=== PATIENT | female | born 1955 | race African-American/Black ===

== ENCOUNTER 2017-11-22 17:15 | Inpatient (IN) | payer MEDICARE, OTHER ==
[~2017-11-22] VITALS: Ht 160 cm; Wt 75.8 kg
[2017-11-22] MEDS ORDERED: ONDANSETRON HCL 4MG/2ML INJ IV STA (17:53)
[2017-11-22] MEDS ORDERED: SODIUM CHLORIDE 0.9% 1,000 ML IV ONE (17:53)
[2017-11-22] MEDS ORDERED: MORPHINE SULFATE 4 MG/ML CPJ (NOT FOR IM USE) IV STA (17:53)
[2017-11-22] MEDS ORDERED: ASPIRIN 81MG TABLET PO ONE (18:00)
[2017-11-22] MEDS ORDERED: FAMOTIDINE 20MG/2ML VIAL IV ONE (18:00)
[2017-11-22] MEDS ORDERED: MAGNESIUM/ALUMINUM HYDROXIDE/SIMETHICONE 30ML UDC PO ONE (18:00)
[2017-11-22 18:39] LABS: CHLORIDE 104 mEq/L (98-107)
[2017-11-22 18:42] LABS: D-DIMER 0.45 mg/L FEU (<0.50); INR 0.9; PARTIAL THROMBOPLASTIN TIME 29.6 sec (23.4-31.0); PROTHROMBIN TIME 9.4 sec (9.1-11.1)
[2017-11-22 18:44] LABS: BASOPHILS % 0.3 % (0.0-2.0); EOSINOPHILS % 2.5 % (0.0-5.0); HEMOGLOBIN. 12.7 g/dL (12.0-16.0); LYMPHOCYTES % 34.5 % (20.0-50.0); MEAN CORPUSCULAR HEMOGLOBIN 22.5 pg (28.0-32.0); MEAN CORPUSCULAR VOLUME 71.3 fL (81.0-99.0); MEAN PLATELET VOLUME 7.9 fl (7.4-10.4); MONOCYTES % 7.4 % (2.0-8.0); NEUTROPHILS % 55.3 % (40.0-76.0); PLATELET 298 x1000/uL (130-400); RED BLOOD CELL COUNT 5.61 mill/uL (4.2-5.4); RED CELL DISTRIBUTION WIDTH 16.9 % (11.6-14.6)
[2017-11-22 18:45] LABS: ETHANOL BLOOD < 10 mg/dL
[2017-11-22 20:53] LABS: *AMPHETAMINES SCREEN URINE NEGATIVE (NEGATIVE); *BARBITURATES SCREEN URINE NEGATIVE (NEGATIVE); *BENZODIAZEPINES SCREEN URINE NEGATIVE (NEGATIVE)
[2017-11-22 20:57] LABS: *COCAINE SCREEN URINE PRESUMTIVE POSITIVE (NEGATIVE); CANNABINOID URINE SCREEN NEGATIVE (NEGATIVE); METHADONE URINE SCREEN NEGATIVE (NEGATIVE); OPIATES URINE SCREEN PRESUMTIVE POSITIVE (NEGATIVE); PHENCYCLIDINE URINE SCREEN NEGATIVE (NEGATIVE)
[2017-11-22] MEDS ORDERED: ACETAMINOPHEN 325MG TABLET PO PRN (21:00)
[2017-11-22] MEDS ORDERED: DOCUSATE SODIUM 100MG CAPSULE PO PRN (21:00)
[2017-11-22] MEDS ORDERED: TRAMADOL 50MG TABLET PO PRN (21:00)
[2017-11-22] MEDS ORDERED: DIPHENHYDRAMINE 50MG/ML VIAL IV PRN (21:00)
[2017-11-22] MEDS ORDERED: MAGNESIUM/ALUMINUM HYDROXIDE/SIMETHICONE 30ML UDC PO PRN (21:00)
[2017-11-22] MEDS ORDERED: GUAIFENESIN 200MG/10ML SUGAR FREE UDC PO PRN (21:00)
[2017-11-22] MEDS ORDERED: LORAZEPAM 0.5MG TABLET PO PRN (21:00)
[2017-11-22] MEDS ORDERED: NA PHOS,M-B/NA PHOS,DI-BA ENEMA 118ML PR PRN (21:00)
[2017-11-22] MEDS ORDERED: ZOLPIDEM TARTRATE 5MG TABLET PO PRN (21:00)
[2017-11-22] MEDS ORDERED: IPRATROPIUM/ALBUTEROL 0.5-3(2.5)MG/3ML NEB INH PRN (21:00)
[2017-11-22] MEDS ORDERED: ONDANSETRON HCL 4MG/2ML INJ IV PRN (21:00)
[2017-11-22] MEDS ORDERED: CLONIDINE 0.1MG TABLET PO PRN (21:00)
[2017-11-22] MEDS ORDERED: NITROGLYCERIN 0.4MG TABLET SL SL PRN (21:00)
[2017-11-22 23:18] LABS: CREATINE KINASE 83 IU/L (26-192)
[2017-11-22 23:19] LABS: CREATINE KINASE MB FRACTION < 1.0 ng/mL (0.5-3.6)
[2017-11-23 00:05] VITALS: BP 159/54
[2017-11-23 04:00] VITALS: BP 117/45
[2017-11-23] MEDS ORDERED: SUCRALFATE 1 G/10 ML UDC PO SCH (07:40)
[2017-11-23 07:53] LABS: CREATINE KINASE 69 IU/L (26-192); CREATINE KINASE MB FRACTION < 1.0 ng/mL (0.5-3.6)
[2017-11-23 08:00] VITALS: BP 128/66
[2017-11-23] MEDS ORDERED: GUAIFENESIN/DM 600MG/30MG ER TAB 12HR PO SCH (09:00)
[2017-11-23] MEDS ORDERED: ENOXAPARIN 40MG/0.4ML SYR SUBCUT SCH (09:00)
[2017-11-23] MEDS ORDERED: ASPIRIN 325MG EC TABLET PO SCH (09:00)
[2017-11-23 12:00] VITALS: BP_SYST 140; BP_SYST 142; BP_DIAS 73
[2017-11-24] MEDS ORDERED: FAMOTIDINE 20MG TABLET PO SCH (09:00)
== END 2017-11-23 14:34 | disposition home or self-care (01) | DRG 918 ==
LOC: ER 17:57 → EDBEDREQTM 20:30 → EDBEDREQ 20:30 → SUPCPDRO 22:15 → ENRESERV 22:40 → 7WST 22:40
PROVIDERS: ADMIT Internal Medicine; ATTEND Internal Medicine
DX: T40.5X1A Poisoning by cocaine, accidental (unintentional), initial encounter (principal); E66.9 Obesity, unspecified; E78.00 Pure hypercholesterolemia, unspecified; F17.210 Nicotine dependence, cigarettes, uncomplicated; H91.90 Unspecified hearing loss, unspecified ear; I10 Essential (primary) hypertension; K21.9 Gastro-esophageal reflux disease without esophagitis; Z91.19 Patient's noncompliance with other medical treatment and regimen; Z79.82 Long term (current) use of aspirin; Y92.89 Other specified places as the place of occurrence of the external cause; Z68.29 Body mass index [BMI] 29.0-29.9, adult
CPT/HCPCS: 36415; 71045; 80061; 80305; 82550; 82553; 83036; 83880; 84484; 85379; 93005; 93970; 96361; 96374; 96375; 99285; G0482; J1650; J2270; J2405; J3490; J7030

== ENCOUNTER 2018-05-31 20:45 | Emergency (ER) | payer MEDICARE, OTHER ==
[~2018-05-31] VITALS: Ht 160 cm; Wt 78.0 kg
[2018-05-31 21:11] VITALS: BP 136/88
== END 2018-06-01 01:04 | disposition left against medical advice (07) ==
LOC: ER 20:45
DX: R10.9 Unspecified abdominal pain (principal); Z53.21 Procedure and treatment not carried out due to patient leaving prior to being seen by health care provider

== ENCOUNTER 2019-02-23 13:08 | Emergency (ER) | payer MEDICARE, OTHER ==
[~2019-02-23] VITALS: Ht 160 cm; Wt 81.0 kg
[2019-02-23 13:40] VITALS: BP 154/85
[2019-02-23] MEDS ORDERED: IPRATROPIUM/ALBUTEROL 0.5-3(2.5)MG/3ML NEB HHN ONE (15:15)
== END 2019-02-23 15:52 | disposition home or self-care (01) ==
LOC: ER 14:31
DX: J32.9 Chronic sinusitis, unspecified (principal); H66.91 Otitis media, unspecified, right ear; J40 Bronchitis, not specified as acute or chronic
CPT/HCPCS: 94640; 99283; J7620